=== PATIENT | female | born 1985 | race Caucasian/White ===

== ENCOUNTER 2016-09-07 14:46 | Emergency (ER) | payer OTHER ==
[~2016-09-07] VITALS: Ht 152.4 cm; Wt 67.7 kg
[~2016-09-07 14:46] MED LIST: CHOL1000 PO; HYDR-5688 PO; NRN100 PO; ONDA4TAB9 PO; PRLSR20 PO
[2016-09-07 14:51] VITALS: TEMP 36.9; Ht 152.4 cm; Wt 67.7 kg
[2016-09-07] MEDS ORDERED: SODIUM CHLORIDE 0.9% 1000ML 1,000 ML IV STA (15:48)
[2016-09-07] MEDS ORDERED: DiphenhydrAMINE HCL 50 MG/ML VIAL IV STA ×2 (15:48→16:48)
[2016-09-07] MEDS ORDERED: PROCHLORPERAZINE 5 MG/ML 2 ML VIAL IV STA (15:48)
[2016-09-07 16:22] LABS: BASO % 0.4 %; BASO ABS # 0.04 K/uL (0-0.2); COMPLETE YES; EOS % 2.3 %; HEMATOCRIT 38.9 % (37-47); IG% 0.2 %; LYMPH % 28.5 %; LYMPH ABS # 3.08 K/uL (1.2-3.4); MEAN CORPUSCULAR HEMOGLOBIN 27.6 pg (25-34); MEAN CORPUSCULAR HGB CONC 32.9 g/dl (32-36); MEAN PLATELET VOLUME 10.4 fL (7.4-10.4); MONO % 5.7 %; NEUT % 62.9 %; PLATELET COUNT 307 K/uL (130-400); RED BLOOD COUNT 4.63 M/uL (4.2-5.4); WHITE BLOOD COUNT 10.79 K/uL (4.8-10.8)
[2016-09-07 16:28] LABS: URINE APPEARANCE CLOUDY (CLEAR); URINE BILIRUBIN NEG (NEG); URINE COLOR YELLOW; URINE EPITHELIAL CELL AUTO >30 /lpf (0-5); URINE NITRITE POS (NEG); URINE PH 7.5 (4.5-7.5); URINE SPECIFIC GRAVITY 1.024 (1.000-1.030); UROBILINOGEN NEG (NEG)
[2016-09-07 16:31] LABS: MANUAL MICROSCOPIC REQUIRED? NO; REVIEW REQ? NO
[2016-09-07 16:45] LABS: CALCIUM 8.8 mg/dl (8.5-10.1); POTASSIUM 3.6 mmol/L (3.5-5.1)
[2016-09-07 17:49] VITALS: BP 122/64; PULSE 111; O2SAT 99
[2016-09-07] MEDS ORDERED: SUMA25TA12 PO (23:00)
--- NOTE | 2016-09-07 23:00 | EMERGENCY ROOM VISIT NOTE ---
History Report prepared by Magdalena: Kerry Lucero Under the Supervision of: Dr. Demarco Stone M.D. First contact with patient: 15:37 Chief Complaint: HEADACHE Stated Complaint: HEADACHE, NECK STIFFNESS, NAUSEA History of Present Illness The patient is a 31 year old female who presents to the Emergency Room with complaints of a waxing and waning headache beginning 5 days ago. The patient states that she has a history of migraines since she was a teenager. Today she reports that her headache today is "a little different" than her previous migraines. She notes that her pain is mostly on the left side behind her eye and down her neck. The patient states that her usual migraines are behind both eyes and are a constant pain. Her pain today is dull with waves of sharpness. She notes that light, coughing, vomiting, and sneezing worsens her pain. She reports that she is on Imitrex for her migraines and has tried ibuprofen, Tylenol, naproxen, and Excedrin without relief of her symptoms. The patient notes associated vomiting, neck pain, and diarrhea. She denies any fever, head injury, and sore throat. She states that she has a history of neck issues that she has gone to physical therapy for. She has also been seen by orthopedic spine because her neck pain. The patient notes that she had a kidney infection last month and was on antibiotics. She reports that she was supposed to see her urologist today. She denies any chance of . Source of History: patient Onset: 5 days ago Position: head (left ) Quality: dull Timing: waxes/wanes Modifying Factors (Worsening): other (coughing, vomiting, sneezing, light) Associated Symptoms: + diarrhea, + neck pain, + vomiting, No fevers, No sorethroat Note: She denies any head injury. Review of Systems See HPI for pertinent positives & negatives. A total of 10 systems reviewed and were otherwise negative. Past Medical & Surgical Medical Problems: (1) Acute urinary tract infection (2) Cholecystectomy (3) History of - tubal ligation (4) Infectious disorder of kidney (5) Ovarian cyst (6) Tonsillectomy and adenoidectomy Family History Cancer Diabetes mellitus Gallbladder disease Heart disease Hypertension Kidney disease Social History Smoking Status: Never Smoker Alcohol Use: occasionally Drug Use: none Marital Status: Housing Status: lives with family Occupation Status: employed Current/Historical Medications Scheduled Cholecalciferol (Vitamin D3), 1 TAB PO DAILY Ondansetron (Ondansetron HCl), 4 MG PO UD Scheduled PRN Omeprazole (Prilosec), 20 MG PO DAILY PRN for Indigestion Sumatriptan Succinate (Imitrex), 1 TAB PO UD PRN for Migraine Allergies Coded Allergies: Penicillins (Verified Allergy, Unknown, UNK, 06/18/16) Physical Exam Vital Signs Date Time Temp Pulse Resp B/P Pulse Ox O2 Delivery O2 Flow Rate FiO2 09/07/16 17:49 111 18 122/64 99 09/07/16 14:51 36.9 83 18 117/75 100 Physical Exam Constitutional: Vital signs reviewed. Eyes: Pupils are equal round reactive to light. Conjunctiva are noninjected. ENT: Pharynx is clear without erythema or exudate. Mucous membranes are moist. Neck supple without meningeal signs. Respiratory: Clear to auscultation bilaterally. Breath sounds are equal bilaterally. Cardiovascular: Regular rate and rhythm. No rubs or gallops. GI: Soft, nondistended and nontender. Bowel sounds are present. Musculoskeletal: No peripheral edema. No CVA tenderness. Integumentary: No cyanosis. Neurologic: The patient is awake and alert. Cranial nerves II-XII are intact. Motor is 5 out of 5 all extremities. Sensation is intact to light touch all extremities. Normal speech. No pronator drift. Negative Kernig or Brudzinski sign. Psychiatric: Normal affect. Medical Decision & Procedures Laboratory Results 09/07/16 16:00 Red Blood Count 4.63, Mean Corpuscular Volume 84.0, Mean Corpuscular Hemoglobin 27.6, Mean Corpuscular Hemoglobin Concent 32.9, Mean Platelet Volume 10.4, Neutrophils (%) (Auto) 62.9, Lymphocytes (%) (Auto) 28.5, Monocytes (%) (Auto) 5.7, Eosinophils (%) (Auto) 2.3, Basophils (%) (Auto) 0.4, Neutrophils # (Auto) 6.78, Lymphocytes # (Auto) 3.08, Monocytes # (Auto) 0.62, Eosinophils # (Auto) 0.25, Basophils # (Auto) 0.04 09/07/16 16:00 Test 09/07/16 15:59 09/07/16 16:00 Urine Color YELLOW Urine Appearance CLOUDY (CLEAR) Urine pH 7.5 (4.5-7.5) Urine Specific [place] 1.024 (1.000-1.030) Urine Protein NEG (NEG) Urine Glucose (UA) NEG (NEG) Urine Ketones TRACE (NEG) Urine Occult Blood NEG (NEG) Urine Nitrite POS (NEG) Urine Bilirubin NEG (NEG) Urine Urobilinogen NEG (NEG) Urine Leukocyte Esterase NEG (NEG) Urine WBC (Auto) 1-5 /hpf (0-5) Urine RBC (Auto) 0-4 /hpf (0-4) Urine Hyaline Casts (Auto) 1-5 /lpf (0-5) Urine Epithelial Cells (Auto) >30 /lpf (0-5) Urine Bacteria (Auto) 4+ (NEG) Urine Test NEG (NEG) White Blood Count 10.79 K/uL (4.8-10.8) Red Blood Count 4.63 M/uL (4.2-5.4) Hemoglobin 12.8 g/dL (12.0-16.0) Hematocrit 38.9 % (37-47) Mean Corpuscular Volume 84.0 fL (80-100) Mean Corpuscular Hemoglobin 27.6 pg (25-34) Mean Corpuscular Hemoglobin Concent 32.9 g/dl (32-36) Platelet Count 307 K/uL (130-400) Mean Platelet Volume 10.4 fL (7.4-10.4) Neutrophils (%) (Auto) 62.9 % Lymphocytes (%) (Auto) 28.5 % Monocytes (%) (Auto) 5.7 % Eosinophils (%) (Auto) 2.3 % Basophils (%) (Auto) 0.4 % Neutrophils # (Auto) 6.78 K/uL (1.4-6.5) Lymphocytes # (Auto) 3.08 K/uL (1.2-3.4) Monocytes # (Auto) 0.62 K/uL (0.11-0.59) Eosinophils # (Auto) 0.25 K/uL (0-0.5) Basophils # (Auto) 0.04 K/uL (0-0.2) RDW Standard Deviation 43.6 fL (36.4-46.3) RDW Coefficient of Variation 14.2 % (11.5-14.5) Immature Granulocyte % (Auto) 0.2 % Immature Granulocyte # (Auto) 0.02 K/uL (0.00-0.02) Anion Gap 10.0 mmol/L (3-11) Est Creatinine Clear Calc Drug Dose 70.6 ml/min Estimated GFR () 87.6 Estimated GFR (Non- 75.5 BUN/Creatinine Ratio 12.0 (10-20) Calcium Level 8.8 mg/dl (8.5-10.1) Laboratory results as reviewed by me. Medications Administered Medications (Trade) Dose Ordered Sig/Nikia Route Start Time Stop Time Status Last Admin Dose Admin Sodium Chloride (Nss 1000ml) 1,000 ml @ 999 mls/hr Q1H1M STAT IV 09/07/16 15:48 09/07/16 16:48 DC 09/07/16 16:08 999 MLS/HR Prochlorperazine Edisylate (Compazine Inj) 10 mg NOW STAT IV 09/07/16 15:48 09/07/16 15:49 DC 09/07/16 16:07 10 MG Diphenhydramine HCl (Benadryl Inj) 50 mg NOW STAT IV 09/07/16 15:48 09/07/16 15:49 DC 09/07/16 16:07 50 MG Diphenhydramine HCl (Benadryl Inj) 25 mg NOW STAT IV 09/07/16 16:48 09/07/16 16:49 DC 09/07/16 16:48 12.5 MG ED Course 1539: The patient was evaluated in room A3. A complete history and physical exam was performed. 1548: Benadryl Inj 50mg IV, Compazine Inj 10mg IV, Sodium Chloride 1000 ml @ 999 mls/hr IV. 1646: I reevaluated the patient. Her headache is much better now but she notes that her legs feel really restless. I also discussed the patients urine results with her. She is not having any urinary symptoms right now and would rather wait for the culture results and follow up with her urologist. 1648: Benadryl 25mg IV. 1716: I spoke to the patient. She is feeling better and would like to go home. 1725: Upon reevaluation, the patient appeared to have improvement of her symptoms. I discussed aleida's findings with the patient. She verbalized agreement of the treatment plan. The patient was discharged home. Medical Decision This is a 31-year-old female who presents with a headache and neck pain. Differential diagnosis includes migraine headache, tension headache, cluster headache, degenerative disc disease, meningitis. I did perform a limited focused review of portions of the patient's old chart on the electronic medical record. The patient got a head CT in September of last year which was unremarkable. I did evaluate the patient as noted above. She is presenting with a headache for the past 5 days. She also has neck pain but has a history of neck problems. She denies any fever and has no meningeal signs on examination. IV access was established. I did treat the patient with IV Compazine, Benadryl and normal saline. I did order and personally review the patient's urinalysis as described above. A urine culture was sent. I did order and review the patient's blood work as noted in the electronic medical record. Her white blood cell count is not elevated. I did reevaluate the patient. She states that she is feeling much better and remarked on how surprised she was much better she felt. She did, however, have significant restlessness in her legs likely due to the Compazine. I did therefore treat her with an additional 5 mg of Benadryl IV. I did discuss the test results with her. She stated that she would prefer to hold off on treatment with antibiotics as she is not having any urinary symptoms and will follow up closely with her urologist. She states that she was on Macrobid recently which she finished. The patient was discharged in good condition. She was given return instructions as outlined below. Impression Primary Impression: Headache Additional Impression: Vomiting and diarrhea Scribe Attestation The scribe's documentation has been prepared under my direct and personally reviewed by me in its entirety. I confirm that the note above accurately reflects all work, treatment, procedures, and medical decision making performed by me. Departure Information Dispostion Home / Self-Care Referrals Magui Martinez C.R.N.P (PCP) Forms HOME CARE DOCUMENTATION FORM, IMPORTANT VISIT INFORMATION Patient Instructions A Signature Page, ED Headache Migraine, My [facility] Additional Instructions You have been examined and treated today on an emergency basis only. This is not a substitute for, or an effort to provide, complete comprehensive medical care. It is impossible to recognize and treat all injuries or illnesses in a single emergency department visit. It is therefore important that you follow up closely with your physician and urologist . Call as soon as possible for an appointment. Return for worsening symptoms or if you develop fever, burning on urination, abdominal pain or any other concerning symptoms.
--- NOTE | 2016-09-09 18:03 | Pharmacy Progress Note ---
ED Pharmacist Culture FollowUp Date of Service: Sep 09, 2016. Called patient regarding urine culture. Patient unable to get an appointment with urologist until 2-3 weeks from now. Patient noted reason she was seeing a urologist was that she has had multiple episodes of "kidney infection" but is asymptomatic in terms of urinary symptoms until she has severe flank pain associated with pyelonephritis. Patient denies current urinary symptoms and severe flank pain. Based on history above, prescription for Bactrim DS 1 tab po BID x 5 days called to [facility] at the patient's request. Case discussed with Dr. Rangel, who is the prescribing provider.
[2017-07-21] MEDS ORDERED: ACET-1256 PO (09:36)
[2017-07-21] MEDS ORDERED: ETONMIS VAGRING (09:36)
[2017-07-21] MEDS ORDERED: CALC500C3 PO (09:36)
[2017-07-21] MEDS ORDERED: MULT-506 PO (09:36)
== END 2016-09-07 17:49 | disposition home or self-care (01) ==
LOC: C.EDB 14:48 → C.EDA 17:49
DX: R51 Headache (principal); R11.10 Vomiting, unspecified; R19.7 Diarrhea, unspecified; Z80.9 Family history of malignant neoplasm, unspecified; Z83.3 Family history of diabetes mellitus; Z82.49 Family history of ischemic heart disease and other diseases of the circulatory system; Z84.1 Family history of disorders of kidney and ureter

== ENCOUNTER → 2016-12-28 | Outpatient (CLI) | payer OTHER ==
[~2016-12-28] MED LIST changes: +ACET-1256 PO; +CALC500C3 PO; +ETONMIS VAGRING; -HYDR-5688 PO; +MULT-506 PO; -NRN100 PO; +SUMA25TA12 PO
== END | disposition home or self-care (01) ==
LOC: C.LABPVFM 08:14
PROVIDERS: ATTEND Physician Assistant
DX: N64.89 Other specified disorders of breast (principal)

== ENCOUNTER → 2017-01-13 | Outpatient (CLI) | payer OTHER ==
[2017-01-13 15:56] LABS: URINE APPEARANCE CLOUDY (CLEAR); URINE BILIRUBIN NEG (NEG); URINE COLOR YELLOW; URINE EPITHELIAL CELL AUTO >30 /lpf (0-5); URINE NITRITE NEG (NEG); URINE PH 7.5 (4.5-7.5); URINE SPECIFIC GRAVITY 1.025 (1.000-1.030); UROBILINOGEN NEG (NEG)
[2017-01-13 15:58] LABS: MANUAL MICROSCOPIC REQUIRED? NO; REVIEW REQ? NO
[2017-01-16 11:23] LABS: CHLAMYDIA TRACH RNA*** NOT DETECTED (NOT DETECTED); GC (NEIS GONORRHOEAE)RNA** NOT DETECTED (NOT DETECTED)
== END | disposition home or self-care (01) ==
LOC: C.LABSPEC 15:36
PROVIDERS: ATTEND Obstetrics & Gynecology
DX: R35.0 Frequency of micturition (principal); Z20.2 Contact with and (suspected) exposure to infections with a predominantly sexual mode of transmission

== ENCOUNTER → 2017-07-14 | Outpatient (CLI) | payer OTHER ==
[~2017-07-14] MED LIST changes: -ACET-1256 PO; -CALC500C3 PO; -ETONMIS VAGRING; -MULT-506 PO
[2017-07-19 00:46] LABS: CHLAMYDIA TRACH RNA*** NOT DETECTED (NOT DETECTED); GC (NEIS GONORRHOEAE)RNA** NOT DETECTED (NOT DETECTED); TRICHOMONAS VAGINALIS RNA** NOT DETECTED (NOT DETECTED)
== END | disposition home or self-care (01) ==
LOC: C.LABSPEC 13:40
PROVIDERS: ATTEND Physician Assistant
DX: N94.10 Unspecified dyspareunia (principal)

== ENCOUNTER 2017-11-16 11:11 | Emergency (ER) | payer OTHER ==
[~2017-11-16] VITALS: Ht 152.4 cm; Wt 75.0 kg
[~2017-11-16 11:11] MED LIST changes: +ACET-1256 PO; +CALC500C3 PO; -CHOL1000 PO; +ETONMIS VAGRING; +MULT-506 PO; -ONDA4TAB9 PO; -PRLSR20 PO
[2017-11-16 11:13] VITALS: Ht 152.4 cm; Wt 75.0 kg
[2017-11-16] MEDS ORDERED: ONDANSETRON INJ 2 MG/ML 2 ML VIAL IV STA (11:48)
[2017-11-16] MEDS ORDERED: LORAZEPAM 1 MG TAB SL STA (11:48)
[2017-11-16] MEDS ORDERED: SODIUM CHLORIDE 0.9% 1000ML 1,000 ML IV STA (11:48)
[2017-11-16 12:12] LABS: BASO % 0.4 %; BASO ABS # 0.03 K/uL (0-0.2); EOS % 2.8 %; EOS ABS # 0.21 K/uL (0-0.5); HEMATOCRIT 39.8 % (37-47); HEMOGLOBIN 13.2 g/dL (12.0-16.0); IG# 0.01 K/uL (0.00-0.02); LYMPH % 38.5 %; LYMPH ABS # 2.85 K/uL (1.2-3.4); MEAN CORPUSCULAR HEMOGLOBIN 27.8 pg (25-34); MEAN CORPUSCULAR HGB CONC 33.2 g/dl (32-36); MEAN PLATELET VOLUME 10.4 fL (7.4-10.4); MONO % 7.2 %; MONO ABS # 0.53 K/uL (0.11-0.59); NEUT ABS # 3.78 K/uL (1.4-6.5); PLATELET COUNT 304 K/uL (130-400); RED CELL DISTRIBUTION WIDTH SD 43.6 fL (36.4-46.3); WHITE BLOOD COUNT 7.41 K/uL (4.8-10.8)
[2017-11-16 12:30] LABS: ALBUMIN 4.3 gm/dl (3.4-5.0); ALT/SGPT 22 U/L (12-78); BLOOD UREA NITROGEN 9 mg/dl (7-18); CALCIUM 9.4 mg/dl (8.5-10.1); CARBON DIOXIDE 26 mmol/L (21-32); CREATININE 0.83 mg/dl (0.60-1.20); GLUCOSE 83 mg/dl (70-99); LIPASE 152 U/L (73-393); POTASSIUM 3.8 mmol/L (3.5-5.1); SODIUM 136 mmol/L (136-145)
[2017-11-16 12:35] LABS: ALKALINE PHOSPHATASE 94 U/L (45-117); AST/SGOT 19 U/L (15-37); TOTAL PROTEIN 8.4 gm/dl (6.4-8.2)
[2017-11-16 13:01] LABS: INFLUENZA B ANTIGEN Neg for Influ B (NEG)
--- NOTE | 2017-11-16 13:40 | DIAGNOSTIC IMAGING REPORT ---
CHEST ONE VIEW PORTABLE CLINICAL HISTORY: CHEST PAIN dyspnea COMPARISON STUDY: 04/27/2016 FINDINGS: The bones soft tissues and hemidiaphragms are normal. The cardiomediastinal silhouette is normal. The lungs are clear. The pulmonary vasculature is normal. IMPRESSION: Negative chest. The above report was generated using voice recognition software. It may contain grammatical, syntax or spelling errors. Electronically signed by: Dangelo Box M.D. 11/16/2017 1:38 PM Dictated Date/Time: 11/16/2017 1:37 PM
--- NOTE | 2017-11-16 13:43 | EMERGENCY ROOM VISIT NOTE ---
History Report prepared by Magdalnea: Tiesha Stoddard Under the Supervision of: Dr. Ihs Wong M.D. First contact with patient: 11:45 Chief Complaint: CHEST PAIN Stated Complaint: CHEST PAIN, HAND AND ARM NUBNESS, LIGHTHTEADED Nursing Triage Summary: pt to the ED with c/o chest pain and SOB that started this am no cough no cold sx pt states that the pain goes to her throat History of Present Illness The patient is a 32 year old female who presents to the Emergency Room with complaints of persistent chest pain starting this morning. The pain started soon after she woke up. The pain was initially sharp, but now just feels tight. The patient also started having hand and arm numbness and tingling this morning. These symptoms scared her and she developed a headache from crying. She does get nauseous and cries with her anxiety. She is currently just complaining of chest tightness, chills, and nausea. She has a history of anxiety and depression. She has not had panic attacks before. She only had chest pain once before with her anxiety and that was after her grandfather had . She is currently not on any medications for anxiety. 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 She notes that she was mostly likely thinking about this when she woke up this morning. She denies any cough, SOB, fever, congestion, vomiting, diarrhea, or abdominal pain. She recently was treated for a UTI. She currently does not have any urinary symptoms, but notes that she is usually not symptomatic with her UTIs. She denies any history of hypertension or diabetes. Her uncle had an MS in his 30s. He was a smoker. She has had a tubal ligation and denies any chance of . She denies any recent surgery or being bedbound. She does not smoke. She denies any history of blood clots or cancer. Source of History: patient Onset: this morning Position: chest Quality: other (tightness) Timing: other (persistent) Associated Symptoms: + chills, + headache, + nausea, No fevers, No cough, No SOB, No vomiting, No abdominal pain, No diarrhea, No urinary symptoms Review of Systems See HPI for pertinent positives and negatives. A total of ten systems were reviewed and were otherwise negative. Past Medical & Surgical Medical Problems: (1) Acute urinary tract infection (2) Cholecystectomy (3) History of - tubal ligation (4) Infectious disorder of kidney (5) Ovarian cyst (6) Tonsillectomy and adenoidectomy Family History Cancer Diabetes mellitus Gallbladder disease Heart disease Hypertension Kidney disease Social History Smoking Status: Never Smoker Alcohol Use: occasionally Drug Use: none Marital Status: Housing Status: lives with family Occupation Status: unemployed Current/Historical Medications Scheduled Acetaminophen (Tylenol), 1,000 MG PO BID Calcium Carbonate (Tums), PO PRN Etonogestrel/Ethinyl Estradiol (Nuvaring), 1 EA VAGRING MONTHLY Multivitamin (Multivitamin), 1 TAB PO DAILY Scheduled PRN Sumatriptan Succinate (Imitrex), 1 TAB PO UD PRN for Migraine Allergies Coded Allergies: Penicillins (Verified Allergy, Unknown, UNK, 11/16/17) Physical Exam Vital Signs Date Time Temp Pulse Resp B/P (MAP) Pulse Ox O2 Delivery O2 Flow Rate FiO2 11/16/17 14:30 59 119/54 98 11/16/17 13:32 109/77 11/16/17 13:30 76 20 99 11/16/17 13:01 109/84 11/16/17 13:00 60 15 100 11/16/17 12:32 86/37 11/16/17 12:30 61 16 99 11/16/17 12:18 72 18 117/68 100 Room Air 11/16/17 11:25 95 11/16/17 11:24 Room Air Physical Exam GENERAL: Awake, alert, anxious-appearing, in no distress HENT: Normocephalic, atraumatic. Dry mucous membranes. EYES: Normal conjunctiva. Sclera non-icteric. NECK: Supple. No nuchal rigidity. FROM. No JVD. RESPIRATORY: Clear to auscultation. CARDIAC: Regular rate, normal rhythm. Extremities warm and well perfused. Pulses equal. ABDOMEN: Soft, non-distended. No tenderness to palpation. No rebound or guarding. No masses. RECTAL: Deferred. MUSCULOSKELETAL: Chest examination reveals no tenderness. The back is symmetrical on inspection without obvious abnormality. There is no CVA tenderness to palpation. No joint edema. LOWER EXTREMITIES: Calves are equal size bilaterally and non-tender. No edema. No discoloration. NEURO: Normal sensorium. No sensory or motor deficits noted. SKIN: No rash or jaundice noted. Medical Decision & Procedures ER Provider Diagnostic Interpretation: Radiology results as stated below per my review and radiologist interpretation: CHEST ONE VIEW PORTABLE CLINICAL HISTORY: CHEST PAIN dyspnea COMPARISON STUDY: 04/27/2016 FINDINGS: The bones soft tissues and hemidiaphragms are normal. The cardiomediastinal silhouette is normal. The lungs are clear. The pulmonary vasculature is normal. IMPRESSION: Negative chest. The above report was generated using voice recognition software. It may contain grammatical, syntax or spelling errors. Electronically signed by: Dangelo Box M.D. 11/16/2017 1:38 PM Dictated Date/Time: 11/16/2017 1:37 PM Laboratory Results 11/16/17 11:50 Red Blood Count 4.74, Mean Corpuscular Volume 84.0, Mean Corpuscular Hemoglobin 27.8, Mean Corpuscular Hemoglobin Concent 33.2, Mean Platelet Volume 10.4, Neutrophils (%) (Auto) 51.0, Lymphocytes (%) (Auto) 38.5, Monocytes (%) (Auto) 7.2, Eosinophils (%) (Auto) 2.8, Basophils (%) (Auto) 0.4, Neutrophils # (Auto) 3.78, Lymphocytes # (Auto) 2.85, Monocytes # (Auto) 0.53, Eosinophils # (Auto) 0.21, Basophils # (Auto) 0.03 11/16/17 11:50 Test 11/16/17 11:50 11/16/17 12:00 White Blood Count 7.41 K/uL (4.8-10.8) Red Blood Count 4.74 M/uL (4.2-5.4) Hemoglobin 13.2 g/dL (12.0-16.0) Hematocrit 39.8 % (37-47) Mean Corpuscular Volume 84.0 fL (80-100) Mean Corpuscular Hemoglobin 27.8 pg (25-34) Mean Corpuscular Hemoglobin Concent 33.2 g/dl (32-36) Platelet Count 304 K/uL (130-400) Mean Platelet Volume 10.4 fL (7.4-10.4) Neutrophils (%) (Auto) 51.0 % Lymphocytes (%) (Auto) 38.5 % Monocytes (%) (Auto) 7.2 % Eosinophils (%) (Auto) 2.8 % Basophils (%) (Auto) 0.4 % Neutrophils # (Auto) 3.78 K/uL (1.4-6.5) Lymphocytes # (Auto) 2.85 K/uL (1.2-3.4) Monocytes # (Auto) 0.53 K/uL (0.11-0.59) Eosinophils # (Auto) 0.21 K/uL (0-0.5) Basophils # (Auto) 0.03 K/uL (0-0.2) RDW Standard Deviation 43.6 fL (36.4-46.3) RDW Coefficient of Variation 14.0 % (11.5-14.5) Immature Granulocyte % (Auto) 0.1 % Immature Granulocyte # (Auto) 0.01 K/uL (0.00-0.02) Anion Gap 7.0 mmol/L (3-11) Est Creatinine Clear Calc Drug Dose 88.8 ml/min Estimated GFR () 108.9 Estimated GFR (Non- 94.0 BUN/Creatinine Ratio 10.9 (10-20) Calcium Level 9.4 mg/dl (8.5-10.1) Total Bilirubin 0.4 mg/dl (0.2-1) Direct Bilirubin 0.1 mg/dl (0-0.2) Aspartate Amino Transf (AST/SGOT) 19 U/L (15-37) Alanine Aminotransferase (ALT/SGPT) 22 U/L (12-78) Alkaline Phosphatase 94 U/L (45-117) Troponin I < 0.015 ng/ml (0-0.045) Total Protein 8.4 gm/dl (6.4-8.2) Albumin 4.3 gm/dl (3.4-5.0) Lipase 152 U/L (73-393) Urine Color YELLOW Urine Appearance CLEAR (CLEAR) Urine pH >= 9.0 (4.5-7.5) Urine Specific [place] 1.018 (1.000-1.030) Urine Protein NEG (NEG) Urine Glucose (UA) NEG (NEG) Urine Ketones NEG (NEG) Urine Occult Blood NEG (NEG) Urine Nitrite POS (NEG) Urine Bilirubin NEG (NEG) Urine Urobilinogen NEG (NEG) Urine Leukocyte Esterase NEG (NEG) Urine WBC (Auto) 1-5 /hpf (0-5) Urine RBC (Auto) 0-4 /hpf (0-4) Urine Hyaline Casts (Auto) 0 /lpf (0-5) Urine Epithelial Cells (Auto) >30 /lpf (0-5) Urine Bacteria (Auto) 4+ (NEG) Urine Test NEG (NEG) Influenza Type A Antigen Neg for Influ A (NEG) Influenza Type B Antigen Neg for Influ B (NEG) Laboratory results reviewed by me Medications Administered Medications (Trade) Dose Ordered Sig/Nikia Route Start Time Stop Time Status Last Admin Dose Admin Sodium Chloride 1,000 ml @ 999 mls/hr Q1H1M STAT IV 11/16/17 11:48 11/16/17 12:48 DC 11/16/17 12:20 999 MLS/HR Ondansetron HCl (Zofran Inj) 4 mg NOW STAT IV 11/16/17 11:48 11/16/17 11:56 DC 11/16/17 12:20 4 MG Lorazepam (Ativan Tab) 1 mg NOW STAT SL 11/16/17 11:48 11/16/17 11:56 DC 11/16/17 12:19 1 MG ECG Per My Interpretation Indication: chest pain Rate (beats per minute): 76 Rhythm: normal sinus Findings: no acute ischemic change, other (normal axis) ED Course 1148: The patient was evaluated in room A11B. A complete history and physical exam was performed. 1348: I reevaluated the patient. Discussed results and discharge instructions: She verbalized understanding and agreement. The patient is ready for discharge. Medical Decision I reviewed the patient's past medical history, medications, and the nursing notes as described above. Differential diagnosis: Etiologies such as anxiety, cardiac ischemia, aortic dissection, pulmonary embolism, pneumonia, pneumothorax, musculoskeletal, infections, pericarditis, myocarditis, esophageal rupture, gastrointestinal, as well as others were entertained. The patient is a 32-year-old woman with a past medical history of anxiety depression who presents emergency department with substernal chest pain that happened when she woke this morning in the setting of feeling stress related to legal/school issues related to her daughter per hpi. Rather the patient is anxious appearing but no acute distress, afebrile stable vital signs. EKG is negative for acute ischemia. Troponin negative the setting of greater than 4 hours of symptoms. Heart score 1, low risk, ACS unlikely. Patient is not tachycardic or hypoxic and thus is PERC negative. PE not likely. Chest x-ray negative. Otherwise labs unremarkable including WBC within normal limits. UA with positive nitrites however no WBCs and otherwise a dirty sample with epithelial cells. Given the patient has no dysuria will wait for cultures. Patient feeling improved after IV fluid hydration and Ativan. Thus, symptoms most likely related to patient's anxiety related to her current stressful situation. Findings and plan for follow-up reviewed with patient. Patient agreeable and d/c'd per discharge instructions. Medication Reconcilliation Current Medication List: was personally reviewed by me Blood Pressure Screening Patient's blood pressure: Normal blood pressure Blood pressure disposition: Did not require urgent referral Impression Primary Impression: Substernal precordial chest pain Additional Impression: Anxiety Scribe Attestation The scribe's documentation has been prepared under my direction and personally reviewed by me in its entirety. I confirm that the note above accurately reflects all work, treatment, procedures, and medical decision making performed by me. Departure Information Dispostion Home / Self-Care Referrals Magui Martinez C.R.N.P (PCP) Patient Instructions Anxiety Body Response, ED Chest Pain Atypical Unkn Cause, My [facility] Additional Instructions Please follow up with your primary care physician in the next 1-3 days for re- evaluation. Your symptoms were most likely related to anxiety. Otherwise, your exam, EKG, chest xray, and lab results did not show signs of an emergent condition at this time. Drink plenty of fluids to ensure hydration. Return to the emergency department for worsening symptoms as described in the accompanying instructions. Problem Qualifiers
[2017-11-16 14:30] VITALS: BP 119/54; PULSE 59; O2SAT 98
== END 2017-11-16 14:30 | disposition home or self-care (01) ==
LOC: C.EDB 11:13 → C.EDA 14:30
DX: R07.2 Precordial pain (principal); F41.9 Anxiety disorder, unspecified; Z83.3 Family history of diabetes mellitus; Z82.49 Family history of ischemic heart disease and other diseases of the circulatory system

== ENCOUNTER 2018-04-08 08:48 | Emergency (ER) | payer OTHER ==
[~2018-04-08] VITALS: Ht 152.4 cm; Wt 71.2 kg
[~2018-04-08 08:48] MED LIST changes: -ETONMIS VAGRING; +IBUP200C80 PO; -MULT-506 PO; -SUMA25TA12 PO; +lidocaine patch
[2018-04-08 08:54] VITALS: TEMP 36.8; Ht 152.4 cm; Wt 71.2 kg
[2018-04-08] MEDS ORDERED: SODIUM CHLORIDE 0.9% 1000ML 1,000 ML IV STA (09:03)
[2018-04-08] MEDS ORDERED: ONDANSETRON INJ 2 MG/ML 2 ML VIAL ONE (09:11)
[2018-04-08 09:20] LABS: BASO % 0.5 %; BASO ABS # 0.05 K/uL (0-0.2); HEMATOCRIT 39.5 % (37-47); HEMOGLOBIN 12.8 g/dL (12.0-16.0); IG# 0.02 K/uL (0.00-0.02); LYMPH % 34.8 %; LYMPH ABS # 3.35 K/uL (1.2-3.4); MEAN CELL VOLUME 82.3 fL (80-100); MEAN CORPUSCULAR HEMOGLOBIN 26.7 pg (25-34); MEAN CORPUSCULAR HGB CONC 32.4 g/dl (32-36); MEAN PLATELET VOLUME 10.2 fL (7.4-10.4); MONO % 7.7 %; MONO ABS # 0.74 K/uL (0.11-0.59); NEUT % 55.8 %; NEUT ABS # 5.38 K/uL (1.4-6.5); PLATELET COUNT 301 K/uL (130-400); RED CELL DISTRIBUTION WIDTH CV 14.4 % (11.5-14.5); RED CELL DISTRIBUTION WIDTH SD 43.5 fL (36.4-46.3); WHITE BLOOD COUNT 9.64 K/uL (4.8-10.8)
[2018-04-08] MEDS ORDERED: RANITIDINE HCL 50 MG/100 ML D5W IV STA (09:27)
[2018-04-08] MEDS ORDERED: KETOROLAC TROMETHAMINE 30 MG/ML VIAL IV STA (09:27)
[2018-04-08] MEDS ORDERED: DICYCLOMINE HCL 10 MG/ML 2 ML AMP IM ONE (09:30)
[2018-04-08 09:38] LABS: ALBUMIN 3.9 gm/dl (3.4-5.0); CALCIUM 9.1 mg/dl (8.5-10.1); CREATININE 0.91 mg/dl (0.60-1.20); POTASSIUM 3.6 mmol/L (3.5-5.1); TOTAL PROTEIN 8.2 gm/dl (6.4-8.2)
[2018-04-08] MEDS ORDERED: CEFTRIAXONE SOD INJ 1 GM ADDVIAL IV STA (10:15)
--- NOTE | 2018-04-08 11:36 | EMERGENCY ROOM VISIT NOTE ---
History Report prepared by Magdalena: Marija Del Rosario Under the Supervision of: Dr. Chaitanya Tirado M.D. First contact with patient: 09:03 Chief Complaint: ILLNESS Stated Complaint: NAUSEA, VOMITING, STOMACH CRAMPS, HEART BURN, [place] History of Present Illness The patient is a 32 year old female who presents to the Emergency Room with complaints of generalized pain over the last 2 days. She currently rates her pain at a 6/10. The patient reports having upper abdominal pain, nausea, vomiting, diarrhea, and headaches. The patient also reports being gassy and bloated and having heart burn. She states that she recently ate [employer] but reports that her stomach usually hurts afterwards when she does. The patient denies any recent antibiotic use. The patient reports taking Tylenol and Pepto Bismol for her pain. She denies being around anyone sick, trying new foods, or recent travel. The patient states that she tried to eat bryant and crackers but was unable to keep it down. She reports a history of a tubal ligation, cholecystectomy, tonsillectomy, and ovarian cyst removal. She also reports following with a urologist for UTIs. Pt denies melena, hematochezia, urinary symptoms, numbness, lymphadenopathy, rash, or other complaints. Source of History: patient Onset: over the last 2 days Position: other (generalized) Symptom Intensity: rated at a 6/10 Quality: other (pain) Associated Symptoms: + headache, + nausea, + vomiting, + abdominal pain, + diarrhea, No urinary symptoms Note: additional symptom: heart burn Review of Systems See HPI for pertinent positives and negatives. A total of ten systems were reviewed and were otherwise negative. Past Medical & Surgical Medical Problems: (1) Acute urinary tract infection (2) Ankle sprain (3) Back pain (4) Cholecystectomy (5) Electric shock (6) Electric shock (7) Foot pain (8) History of - tubal ligation (9) Infectious disorder of kidney (10) Left flank pain (11) Menses painful (12) Ovarian cyst (13) Pain, dental (14) Pain, dental (15) Partial thickness burn of left foot (16) Pyelonephritis (17) Tonsillectomy and adenoidectomy (18) Torticollis, acute (19) UTI (urinary tract infection) (20) Vomiting (21) Vomiting and diarrhea Social History Problems: (1) Headache Family History Cancer Diabetes mellitus Gallbladder disease Heart disease Hypertension Kidney disease Social History Smoking Status: Never Smoker Alcohol Use: occasionally Drug Use: none Marital Status: Housing Status: lives with family Occupation Status: unemployed Current/Historical Medications Scheduled Nitrofurantoin Monohyd Macrocr (Macrobid), 100 MG PO BID Ondasetron Odt (Zofran Odt), 4 MG SL Q6H Allergies Coded Allergies: Penicillins (Verified Allergy, Unknown, UNK, 04/08/18) Physical Exam Vital Signs Date Time Temp Pulse Resp B/P (MAP) Pulse Ox O2 Delivery O2 Flow Rate FiO2 04/08/18 12:41 67 16 116/72 98 Room Air 04/08/18 10:25 66 17 103/58 99 Room Air 04/08/18 08:54 36.8 87 18 127/85 98 Room Air Physical Exam GENERAL: Awake, alert, uncomfortable-appearing, in no distress HENT: Normocephalic, atraumatic. Oropharynx unremarkable. EYES: Normal conjunctiva. Sclera non-icteric. NECK: Supple. No nuchal rigidity. FROM. No masses. RESPIRATORY: Clear to auscultation. No wheezes. No rales. Normal respiratory effort. CARDIAC: Normal rate. Normal rhythm. No murmurs. No rubs. Extremities warm and well perfused. Pulses equal. No JVD. GI: Soft, non-distended. No tenderness to palpation. No rebound or guarding. No masses. RECTAL: Deferred. MUSCULOSKELETAL: Atraumatic. Chest examination reveals no tenderness. The back is without obvious abnormality. There is no CVA tenderness to palpation. No joint edema. LOWER EXTREMITIES: Calves are equal size bilaterally and non-tender. No edema. No discoloration. NEURO: Normal sensorium. No sensory or motor deficits noted. SKIN: No rash or jaundice noted. Medical Decision & Procedures Laboratory Results 04/08/18 09:08 Red Blood Count 4.80, Mean Corpuscular Volume 82.3, Mean Corpuscular Hemoglobin 26.7, Mean Corpuscular Hemoglobin Concent 32.4, Mean Platelet Volume 10.2, Neutrophils (%) (Auto) 55.8, Lymphocytes (%) (Auto) 34.8, Monocytes (%) (Auto) 7.7, Eosinophils (%) (Auto) 1.0, Basophils (%) (Auto) 0.5, Neutrophils # (Auto) 5.38, Lymphocytes # (Auto) 3.35, Monocytes # (Auto) 0.74, Eosinophils # (Auto) 0.10, Basophils # (Auto) 0.05 04/08/18 09:08 Test 04/08/18 09:00 04/08/18 09:08 Urine Color DK YELLOW Urine Appearance TURBID (CLEAR) Urine pH 6.0 (4.5-7.5) Urine Specific [place] 1.028 (1.000-1.030) Urine Protein TRACE (NEG) Urine Glucose (UA) NEG (NEG) Urine Ketones TRACE (NEG) Urine Occult Blood NEG (NEG) Urine Nitrite POS (NEG) Urine Bilirubin NEG (NEG) Urine Urobilinogen NEG (NEG) Urine Leukocyte Esterase NEG (NEG) Urine WBC (Auto) 1-5 /hpf (0-5) Urine RBC (Auto) 0-4 /hpf (0-4) Urine Hyaline Casts (Auto) /lpf (0-5) Urine Epithelial Cells (Auto) >30 /lpf (0-5) Urine Bacteria (Auto) 4+ (NEG) Urine Pathogenic Casts /lpf (0) Urine Test NEG (NEG) White Blood Count 9.64 K/uL (4.8-10.8) Red Blood Count 4.80 M/uL (4.2-5.4) Hemoglobin 12.8 g/dL (12.0-16.0) Hematocrit 39.5 % (37-47) Mean Corpuscular Volume 82.3 fL (80-100) Mean Corpuscular Hemoglobin 26.7 pg (25-34) Mean Corpuscular Hemoglobin Concent 32.4 g/dl (32-36) Platelet Count 301 K/uL (130-400) Mean Platelet Volume 10.2 fL (7.4-10.4) Neutrophils (%) (Auto) 55.8 % Lymphocytes (%) (Auto) 34.8 % Monocytes (%) (Auto) 7.7 % Eosinophils (%) (Auto) 1.0 % Basophils (%) (Auto) 0.5 % Neutrophils # (Auto) 5.38 K/uL (1.4-6.5) Lymphocytes # (Auto) 3.35 K/uL (1.2-3.4) Monocytes # (Auto) 0.74 K/uL (0.11-0.59) Eosinophils # (Auto) 0.10 K/uL (0-0.5) Basophils # (Auto) 0.05 K/uL (0-0.2) RDW Standard Deviation 43.5 fL (36.4-46.3) RDW Coefficient of Variation 14.4 % (11.5-14.5) Immature Granulocyte % (Auto) 0.2 % Immature Granulocyte # (Auto) 0.02 K/uL (0.00-0.02) Anion Gap 6.0 mmol/L (3-11) Est Creatinine Clear Calc Drug Dose 78.9 ml/min Estimated GFR () 97.4 Estimated GFR (Non- 84.1 BUN/Creatinine Ratio 13.0 (10-20) Calcium Level 9.1 mg/dl (8.5-10.1) Total Bilirubin 0.6 mg/dl (0.2-1) Direct Bilirubin 0.2 mg/dl (0-0.2) Aspartate Amino Transf (AST/SGOT) 18 U/L (15-37) Alanine Aminotransferase (ALT/SGPT) 19 U/L (12-78) Alkaline Phosphatase 81 U/L (45-117) Total Protein 8.2 gm/dl (6.4-8.2) Albumin 3.9 gm/dl (3.4-5.0) Lipase 120 U/L (73-393) Laboratory results reviewed by me Medications Administered Medications (Trade) Dose Ordered Sig/Nikia Route Start Time Stop Time Status Last Admin Dose Admin Sodium Chloride 1,000 ml @ 999 mls/hr Q1H1M STAT IV 04/08/18 09:03 04/08/18 10:03 DC 04/08/18 09:18 999 MLS/HR Ondansetron HCl (Zofran Inj) 4 mg STK-MED ONCE .ROUTE 04/08/18 09:11 04/08/18 09:12 DC 04/08/18 09:18 4 MG Ketorolac Tromethamine (Toradol Inj) 15 mg NOW STAT IV 04/08/18 09:27 04/08/18 09:29 DC 04/08/18 09:42 15 MG Dicyclomine HCl (Bentyl Inj) 20 mg NOW ONCE IM 04/08/18 09:30 04/08/18 09:31 DC 04/08/18 09:48 20 MG Ranitidine HCl (zANTac IV) 50 mg NOW STAT IV 04/08/18 09:27 04/08/18 09:29 DC 04/08/18 09:42 50 MG Ceftriaxone Sodium (Rocephin Inj) 1 gm NOW STAT IV 04/08/18 10:15 04/08/18 10:16 DC 04/08/18 10:23 1 GM ED Course 0903: Ordered Sodium Chloride 1000 ml @ 999 mls/hr IV. 0911: Ordered Zofran Inj 4 mg IV. 0926: The patient was evaluated in room B12B. A complete history and physical exam was performed. 926: Ordered Ranitidine HCl 50 mg IV, Toradol Inj 15 mg IV. 30: Ordered Bentyl Inj 20 mg IM. 1014: I reviewed the patient's records. She has had multiple cases of E.Coli and UTIs. 1015: Ordered Rocephin Inj 1 gm IV. 1235: I reevaluated the patient. She feels better and denies having any pain or nausea. Discussed results and discharge instructions: She verbalized understanding and agreement. The patient is ready for discharge. Medical Decision Prior records/ancillary studies reviewed. Triage Nursing notes reviewed and agree them. Additional history obtained from the family. The patient's history was concerning for nausea, vomiting, diarrhea, and abdominal pain. Differential diagnosis: Etiologies such as gastroenteritis, food borne illness, infections, appendicitis , diverticulitis, inflammatory bowel disease, GI bleed, biliary pathology, UTI, as well as others were entertained. Physical examination findings: As above. No peritoneal findings. ER treatment provided: IV hydration 1 l NSS. Zofran 4 mg IV Bentyl 20 mg IM Toradol 10 mg IV On reassessment the patient felt better. Patient was tolerating p.o. intake. IV Rocephin Diagnostics interpretation by me: The labs revealed an unremarkable CBC and chemistry panel. The patient has what appears to be UTI on urinalysis. Microbiology review indicates she has had frequent E. coli and Klebsiella UTIs have been sensitive to cephalosporins as well as Macrobid. Imaging studies: Deferred After the above treatment the patient was reassessed. She was feeling much better. Her abdominal pain resolved. She had no additional nausea or vomiting. I discussed conservative management with her. She will be prescribed Macrobid and Zofran. She will use [id number] Imodium. If she has worsening problems she will come back to emergency department for reevaluation. She will follow-up with her primary physician. The patient was educated. By the evaluation outlined above other emergent etiologies such as those listed in the differential, as well as others, were deemed relatively unlikely. The patient was educated about the findings as listed above. All questions were answered and the patient was pleased with the treatment. Return instructions were outlined and the patient was discharged in stable condition. The patient was referred to her PCP for follow-up for a recheck of the current condition. Medication Reconcilliation Current Medication List: was personally reviewed by me Blood Pressure Screening Patient's blood pressure: Normal blood pressure Impression Primary Impression: Nausea vomiting and diarrhea Additional Impression: UTI (urinary tract infection) Scribe Attestation The scribe's documentation has been prepared under my direction and personally reviewed by me in its entirety. I confirm that the note above accurately reflects all work, treatment, procedures, and medical decision making performed by me. Departure Information Dispostion Home / Self-Care Prescriptions Nitrofurantoin Monohyd Macrocr (Macrobid) 100 Mg Cap 100 MG PO BID, #14 CAP Prov: Chaitanya Tirado MD 04/08/18 Ondasetron Odt (ZOFRAN ODT) 4 Mg Tab 4 MG SL Q6H for Nausea, #6 TAB Prov: Chaitanya Tirado MD 04/08/18 Referrals Magui Martinez, C.R.N.P (PCP) Forms HOME CARE DOCUMENTATION FORM, IMPORTANT VISIT INFORMATION, WORK / SCHOOL INSTRUCTIONS Patient Instructions My [facility] Additional Instructions Macrobid 100 mg twice daily for 7 days for your urine infection. Imodium: This is available [id number]. Start out with two pills then take one after each loose bowel movement. You can take a maximum of 8 in one day. Only used as needed. Stop if you have bloody stools. Zofran(odansetron) tablets 4mg: Take one and allow it to dissolve in your mouth every four to six hours as needed for nausea or vomiting. Ibuprofen(Motrin, Advil) may be used for fever or pain. Use 600mg every six hours as needed. Take with food. Avoid using more than 2400mg in a 24 hour period. Do not use 2400mg per day for more than three consecutive days without physician direction. Prolonged inappropriate use can lead to stomach upset or ulcers. (AND/OR) Acetaminophen(Tylenol) may be used for fever or pain. Use 1000mg every six hours as needed. Avoid using more than 4000mg in a 24 hour period. Rest and drink plenty of fluids as tolerated. Slow sips of water or sports drinks are recommended instead of large amounts all at once. Continue current medications. Once your stomach is settled start with a clear liquid diet (jello, soup broth, etc.) and then advance as tolerated. You should avoid full, heavy meals for about 24 hrs from the time your symptoms resolved. Return to the ER for persistent vomiting, fevers, abdominal pain, chest pains, difficulty breathing, black or bloody stools, worsening of your condition, or as needed. Follow up with your primary physician in 2-3 days for a recheck of your current condition Problem Qualifiers
[2018-04-08] MEDS ORDERED: ONDA4TAB10 SL (12:35)
[2018-04-08] MEDS ORDERED: NITR-5 PO (12:35)
[2018-04-08 12:41] VITALS: BP 116/72; PULSE 67; O2SAT 98
== END 2018-04-08 12:55 | disposition home or self-care (01) ==
LOC: C.EDB 10:28
DX: N39.0 Urinary tract infection, site not specified (principal); Z90.49 Acquired absence of other specified parts of digestive tract; Z98.51 Tubal ligation status; Z87.440 Personal history of urinary (tract) infections; Z80.9 Family history of malignant neoplasm, unspecified; Z83.3 Family history of diabetes mellitus; Z83.79 Family history of other diseases of the digestive system; Z82.49 Family history of ischemic heart disease and other diseases of the circulatory system; Z84.1 Family history of disorders of kidney and ureter; Z88.0 Allergy status to penicillin

== ENCOUNTER 2019-10-13 17:15 | Observation (INO) ==
[2019-10-13 17:53] LABS: Basophils # (auto) 0.03 K/uL (0-0.2); Basophils % (auto) 0.2 %; Eosinophils # (auto) 0.01 K/uL (0-0.5); Eosinophils % (auto) 0.1 %; Hematocrit (blood only) 35.6 % (37-47); Immature Granulocytes # (auto) 0.03 K/uL (0.00-0.02); Immature Granulocytes % (auto) 0.2 %; Lymphocytes % (auto) 17.6 %; Mean Corpuscular Hemoglobin 27.8 pg (25-34); Mean Corpuscular Hgb Conc 33.7 g/dL (32-36); Mean Corpuscular Volume 82.6 fL (80-100); Mean Platelet Volume 9.9 fL (7.4-10.4); Monocytes # (auto) 0.59 K/uL (0.11-0.59); Monocytes % (auto) 4.2 %; Neutrophils # (auto) 11.04 K/uL (1.4-6.5); Neutrophils % (auto) 77.7 %; Platelet Count 290 K/uL (130-400); RDW Coefficient of Variation 13.8 % (11.5-14.5); Red Blood Count 4.31 M/uL (4.2-5.4)
[2019-10-13 17:58] LABS: Appearance Urine Cloudy (Clear); Bacteria Urine Automated 4+ (Negative); Bilirubin Urine Negative (Negative); Blood Urine 3+ (Negative); Color Urine Dark Yellow; Epithelial Cell Urine Auto >30 /lpf (0-5); Glucose Urine UA Negative (Negative); Ketones Urine Negative (Negative); Leukocyte Esterase Urine Negative (Negative); Nitrite Urine Positive (Negative); Protein Urine Trace (Negative); Specific Gravity Urine 1.035 (1.000-1.030); Urobilinogen Urine Negative (Negative); pH Urine 5.5 (4.5-7.5)
[2019-10-13] MEDS ORDERED: HYDROmorphone INJ 0.5 MG/0.5 ML SYR IV PRN (18:04)
[2019-10-13] MEDS ORDERED: ONDANSETRON INJ 2 MG/ML 2 ML VIAL IV STA ×2 (18:04→19:57)
[2019-10-13] MEDS ORDERED: KETOROLAC TROMETHAMINE 15 MG/ML VIAL IV ONE (18:04)
[2019-10-13] MEDS ORDERED: SODIUM CHLORIDE 0.9% 1000ML 1,000 ML IV ONE (18:04)
[2019-10-13 18:13] LABS: BUN Creatinine Ratio 15.1 (10-20); Calcium 8.6 mg/dl (8.5-10.1); Creatinine Clr Calc Pharmacy 81.8 ml/min; Potassium 3.3 mmol/L (3.5-5.1)
[2019-10-13 18:16] LABS: Albumin Globulin Ratio 1.1 (0.9-2); Bilirubin,Total 0.6 mg/dl (0.2-1); Globulin 3.8 gm/dl (2.5-4.0); Total Protein 7.8 gm/dl (6.4-8.2)
--- NOTE | 2019-10-13 18:42 | CT Scan Report ---
CT OF THE ABDOMEN AND PELVIS WITHOUT CONTRAST CLINICAL HISTORY: Left flank pain. COMPARISON STUDY: CT of the abdomen and pelvis February 27, 2018 TECHNIQUE: Axial images of the abdomen and pelvis were obtained without IV contrast. Images were revi ewed in the axial, sagittal, and coronal planes. Automated exposure control was utilized for the jeovany dy. A dose lowering technique was utilized adhering to the principles of ALARA. FINDINGS: Lung bases are unremarkable. No renal, ureteral or bladder calculi are present. There is no hydronephrosis or hydroureter. Evaluation of the abdomen and pelvis is suboptimal as unenhanced exam . Mild prominence of the common bile duct is unchanged since prior CT and likely related to cholecyst ectomy. The spleen, adrenal glands, liver and pancreas are unremarkable. There is no peripancreatic i nfiltration. There is no evidence for acute appendicitis. Trace fluid within the pelvis is likely phy siologic. The ovaries are not enlarged. No pneumatosis, free air or portal venous gas is present. [place] nazanin is in place. There are no suspicious osseous lesions. IMPRESSION: 1. No urinary calculi or hydronephrosis. 2. No acute process within the abdomen or pelvis on unenhanced exam. ACT 112: Negative or not required by law. Electronically signed by: Celso Prcie M.D. 10/13/2019 6:41 PM
[2019-10-13 18:55] LABS: Mucus Urine Present (None Prsent)
[2019-10-13 18:56] LABS: Amorphous Sediment Urine Present (None Prsent)
[2019-10-13] MEDS ORDERED: cefTRIAXone SODIUM 1,000 MG/50 ML BAG IV STA (18:59)
[2019-10-13] MEDS ORDERED: CALCIUM CARBONATE 500 MG CHEWABLE TAB PO STA (20:02)
[2019-10-13] MEDS: SEPTRA DS HOME PACK 1 EA VIAL PO ONE ×2 (20:48→21:33)
[2019-10-13] MEDS: PHENERGAN 25MG HOMEPACK PO ONE ×2 (20:48→21:33)
[2019-10-13] MEDS: OXYCODONE IR HOME PACK PO ONE ×2 (20:48→21:33)
--- NOTE | 2019-10-13 21:42 | History & Physical Report ---
Date of Service October 13, 2019 Assessment & Plan (1) Urinary tract infection: Urinary tract infection with neutrophilic leukocytosis/severe pelvic pain bilaterally- Severe lower abdominal and bilateral flank pain. Differential includes urinary tract infection/PID/endometriosis. She was given ceftriaxone 1 g IV in the ED. Admit on cefepime 2 g IV every 8 hours.- Presumptive diagnosis by the ED was pyelonephritis, however, CT of abdomen pelvis is completely normal. Her mother has a history of severe endometriosis, which she felt she has had in the past as well. Follow clinical examination, and repeat laboratories in the a.m.. Present on Admission?: Yes (2) Neutrophilic leukocytosis: See above Present on Admission?: Yes (3) GERD without esophagitis: Place on famotidine 20mg IV q12h Present on Admission?: Yes (4) Irritable bowel syndrome: She does complain of back and lower pelvic cramping- Place on baclofen 10 mg p.o. 3 times daily. Present on Admission?: Yes (5) Depression: On no specific treatment at this time Present on Admission?: Yes (6) Bipolar I disorder, single manic episode: On no specific treatment at this time. Present on Admission?: Yes History of Present Illness Chief Complaint: The patient presents to the emergency department with acute onset of bilateral groin, pelvis and flank pain while at work today. Primary Care Provider: Harriet Flood MD The patient is a 34-year-old female with a past medical history including bipolar disorder with single manic episode, anxiety, depression, GERD, irritable bowel syndrome, lumbar radiculopathy, mixed incontinence, vitamin D deficiency, compression fracture, umbilical hernia, history of tubal ligation, history of pyelonephritis and family history of mother with severe endometriosis. She presents to the emergency department with acute onset of pain which she thought may have been a kidney infection, however, she has not noticed any change in urinary frequency or urgency or hematuria. Urinalysis in the ED is positive for UTI on screening, but CT scan of the abdomen/ pelvis was negative. CT did also confirm a tampon being in place. Allergies Allergy/AdvReac Type Severity Reaction Status Date / Time Penicillins Allergy Mild Rash Verified 10/13/19 17:48 Home Medications Home Medications Medication Instructions Recorded Confirmed Type ibuprofen 400 mg PO QID PRN 11/16/18 10/13/19 History acetaminophen 500 mg tablet 1,000 mg PO Q6H PRN tab 04/08/19 10/13/19 History ergocalciferol (vitamin D2) 1,250 mcg PO WK 10/13/19 10/13/19 History [Vitamin D2] oxycodone 5 - 10 mg PO Q4H PRN #14 tab 10/13/19 Rx promethazine 25 mg PO Q6H PRN #10 tab 10/13/19 Rx sulfamethoxazole-trimethoprim 1 tab PO Q12H 7 Days #14 tab 10/13/19 Rx [Bactrim DS] Past Med/Surg History Social History Preferred Language: Vietnamese Communication Ability: Effective Visual Impairment: No Limitations Hearing Ability: Normal Beliefs That Will Affect Care: None marital status: seperated Current Living Situation: Family current occupational status: employed 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 Feels Safe at Home: Yes Smoking Status: Never smoker Second Hand Exposure: No ; Hx Alcohol Use: Yes (social rare) Hx Substance Use: No Review of Systems Review of Systems: The patient denies chest pain, palpitations, shortness of breath, dyspnea on exertion, cough, lower extremity swelling, sore throat, fevers, chills, sweats, diarrhea , constipation, abdominal pain, pelvic pain, blood in urine or stool, dysuria, urinary frequency or urgency, lightheadedness, dizziness, headache, memory loss, loss of consciousness, rash, abnormal bruising or bleeding, imbalance, focal or generalized weakness, numbness or tingling in arms or legs, generalized arthralgias or myalgias, neck pain, or night sweats. The review of systems is otherwise negative other than for that already noted above, and at least 10 systems have been reviewed. Physical Exam Physical Exam: The patient is awake, alert and oriented 3, well developed and well nourished, normocephalic and atraumatic, lying in bed and in no acute distress. HEENT--PERRL, EOMI, mucous membranes and oropharynx normal. Neck--supple. No JVD. No bruits. Thyroid normal, trachea midline, no adenopathy. Heart--normal S1 and S2. No murmurs, rubs or gallops. Lungs--clear bilaterally, no respiratory distress, no accessory muscle use. Abdomen--normal bowel sounds and soft. Bilateral groin and generalized pelvis discomfort. Extremities--no cyanosis or clubbing. No edema. Dermatologic--normal skin turgor, normal color, no abnormal lymph nodes, no rash. Neurologic--cranial nerves II through XII grossly intact. Rheumatologic--normal range of motion. Psychiatric--normal affect. Results & Data Vital Signs (Past 12 Hours) Vital Signs Temp Pulse Resp BP Pulse Ox 10/13/19 20:48 62 18 97 10/13/19 20:00 62 18 106/62 100 10/13/19 18:36 99 10/13/19 17:18 98.4 F 77 18 127/82 100 Laboratory Results Laboratory Results WBC 14.20 K/uL (4.8-10.8) H 10/13/19 17:42 RBC 4.31 M/uL (4.2-5.4) 10/13/19 17:42 Hgb 12.0 g/dL (12.0-16.0) 10/13/19 17:42 Hct 35.6 % (37-47) L 10/13/19 17:42 MCV 82.6 fL (80-100) 10/13/19 17:42 MCH 27.8 pg (25-34) 10/13/19 17:42 MCHC 33.7 g/dL (32-36) 10/13/19 17:42 RDW Std Deviation 42.0 fL (36.4-46.3) 10/13/19 17:42 RDW Coeff of Kb 13.8 % (11.5-14.5) 10/13/19 17:42 Plt Count 290 K/uL (130-400) 10/13/19 17:42 MPV 9.9 fL (7.4-10.4) 10/13/19 17:42 Immature Gran % (Auto) 0.2 % 10/13/19 17:42 Neut % (Auto) 77.7 % 10/13/19 17:42 Lymph % (Auto) 17.6 % 10/13/19 17:42 Parmer % (Auto) 4.2 % 10/13/19 17:42 Eos % (Auto) 0.1 % 10/13/19 17:42 Baso % (Auto) 0.2 % 10/13/19 17:42 Immature Gran # (Auto) 0.03 K/uL (0.00-0.02) H 10/13/19 17:42 Neut # (Auto) 11.04 K/uL (1.4-6.5) H 10/13/19 17:42 Lymph # (Auto) 2.50 K/uL (1.2-3.4) 10/13/19 17:42 Parmer # (Auto) 0.59 K/uL (0.11-0.59) 10/13/19 17:42 Eos # (Auto) 0.01 K/uL (0-0.5) 10/13/19 17:42 Baso # (Auto) 0.03 K/uL (0-0.2) 10/13/19 17:42 Sodium 138 mmol/L (136-145) 10/13/19 17:42 Potassium 3.3 mmol/L (3.5-5.1) L 10/13/19 17:42 Chloride 106 mmol/L (98-107) 10/13/19 17:42 Carbon Dioxide 24 mmol/L (21-32) 10/13/19 17:42 Anion Gap 8.0 (3-11) 10/13/19 17:42 BUN 12 mg/dl (7-18) 10/13/19 17:42 Creatinine 0.82 mg/dl (0.6-1.2) 10/13/19 17:42 Est Cr Clr Drug Dosing 81.8 ml/min 10/13/19 17:42 Est GFR ( Amer) 109.0 10/13/19 17:42 Est GFR (Non-Af Amer) 94.0 10/13/19 17:42 BUN/Creatinine Ratio 15.1 (10-20) 10/13/19 17:42 Glucose 88 mg/dl (70-99) 10/13/19 17:42 Calcium 8.6 mg/dl (8.5-10.1) 10/13/19 17:42 Total Bilirubin 0.6 mg/dl (0.2-1) 10/13/19 17:42 AST 14 U/L (15-37) L 10/13/19 17:42 ALT 13 U/L (12-78) 10/13/19 17:42 Alkaline Phosphatase 65 U/L (45-117) 10/13/19 17:42 Total Protein 7.8 gm/dl (6.4-8.2) 10/13/19 17:42 Albumin 4.0 gm/dl (3.4-5.0) 10/13/19 17:42 Globulin 3.8 gm/dl (2.5-4.0) 10/13/19 17:42 Albumin/Globulin Ratio 1.1 (0.9-2) 10/13/19 17:42 Lipase 102 U/L (73-393) 10/13/19 17:42 Urine Color Dark Yellow 10/13/19 17:42 Urine Appearance Cloudy (Clear) A 10/13/19 17:42 Urine pH 5.5 (4.5-7.5) 10/13/19 17:42 Ur Specific [place] 1.035 (1.000-1.030) H 10/13/19 17:42 Urine Protein Trace (Negative) H 10/13/19 17:42 Urine Glucose (UA) Negative (Negative) 10/13/19 17:42 Urine Ketones Negative (Negative) 10/13/19 17:42 Urine Blood 3+ (Negative) H 10/13/19 17:42 Urine Nitrite Positive (Negative) A 10/13/19 17:42 Urine Bilirubin Negative (Negative) 10/13/19 17:42 Urine Urobilinogen Negative (Negative) 10/13/19 17:42 Ur Leukocyte Esterase Negative (Negative) 10/13/19 17:42 Urine WBC (Auto) 1-5 /hpf (0-5) 10/13/19 17:42 Urine RBC (Auto) 10-30 /hpf (0-4) H 10/13/19 17:42 U Hyaline Cast (Auto) 10-30 /lpf (0-5) H 10/13/19 17:42 U Epithel Cells (Auto) >30 /lpf (0-5) H 10/13/19 17:42 Urine Bacteria (Auto) 4+ (Negative) H 10/13/19 17:42 Ur Renal Epithelial Cell Not Reportable 10/13/19 17:42 Amorphous Sediment Present (None Prsent) A 10/13/19 17:42 Urine Mucus Present (None Prsent) A 10/13/19 17:42 POC Ur Test NEG (NEG) 10/13/19 17:46 Diagnostic Findings [place], [place] [phone] CT Scan Report Patient: DEONNA WOLF Date: 10/13/19 MR#: [id number] [facility] Acct ID:[id number]: Date: 1985City Zip: [place] [address] Age: 34Location: ED Sex: F Room/Bed: Att Phy:Diagnosis: BACK PAIN, PAINFUL URINATION, ABD PAIN Armida Phy: Harriet Flood MDService Date: 10/13/19 Fam Phy:Interpreting Phy: Celso Price MD Admit Phy: Ordering Phy: Chaitanya Tirado MD cc: ~ CT OF THE ABDOMEN AND PELVIS WITHOUT CONTRAST CLINICAL HISTORY: Left flank pain. COMPARISON STUDY: CT of the abdomen and pelvis February 27, 2018 TECHNIQUE: Axial images of the abdomen and pelvis were obtained without IV contrast. Images were reviewed in the axial, sagittal, and coronal planes. Automated exposure control was utilized for the study. A dose lowering technique was utilized adhering to the principles of ALARA. FINDINGS: Lung bases are unremarkable. No renal, ureteral or bladder calculi are present. There is no hydronephrosis or hydroureter. Evaluation of the abdomen and pelvis is suboptimal as unenhanced exam. Mild prominence of the common bile duct is unchanged since prior CT and likely related to cholecystectomy. The spleen, adrenal glands, liver and pancreas are unremarkable. There is no peripancreatic infiltration. There is no evidence for acute appendicitis. Trace fluid within the pelvis is likely physiologic. The ovaries are not enlarged. No pneumatosis, free air or portal venous gas is present. Tampon is in place. There are no suspicious osseous lesions. IMPRESSION: 1. No urinary calculi or hydronephrosis. 2. No acute process within the abdomen or pelvis on unenhanced exam. ACT 112: Negative or not required by law. Electronically signed by: Celso Price M.D. 10/13/2019 6:41 PM Dictated: 10/13/191833 Transcribed: 10/13/191833 Code Status & VTE Plan Code Status Full code VTE Prophylaxis Plan VTE Prophylaxis will be ordered: Yes PG Care Time/CCT Total # of Minutes Spent Total Time Spent with Patient: Total time spent is greater than 50% in coordination of care (as documented) at patient's floor/unit and/or counseling patient: Coding Level of Care Code 44559 OBS Care - Level 3 Diagnoses Urinary tract infection N39.0 Neutrophilic leukocytosis D72.9 GERD without esophagitis K21.9 Irritable bowel syndrome K58.9 Depression F32.9 Bipolar I disorder, single manic episode F30.9
[2019-10-13] MEDS ORDERED: BACLOFEN 10 MG TAB PO PRN (23:21)
[2019-10-13] MEDS ORDERED: HYDROCODONE/ACETAMOPHEN 5/325MG TAB PO PRN (23:22)
[2019-10-13] MEDS ORDERED: POLYETHYLENE (MIRALAX) 17 GM PACK PO PRN (23:22)
[2019-10-13] MEDS ORDERED: ALUMINUM/MAGNESIUM SUSP 30 ML UDC PO PRN (23:22)
[2019-10-13] MEDS ORDERED: KETOROLAC 30 MG/ML VIAL IV PRN (23:22)
[2019-10-13] MEDS ORDERED: MAGNESIUM HYDROXIDE SUSP 30 ML UDC PO PRN (23:22)
[2019-10-13] MEDS: ACETAMINOPHEN 500 MG TAB PO PRN (23:49)
[2019-10-13] MEDS: FAMOTIDINE 20 MG in SYRINGE 3 ML IV SCH (23:53)
[2019-10-13] MEDS: CEFEPIME 2,000 MG in SYRINGE 7.5 ML IV SCH (23:53)
--- NOTE | 2019-10-14 | Emergency Department Note ---
Entered by Floridalma Mcallister acting as a scribe for ED Provider Note CHIEF COMPLAINT: Flank pain HISTORY OF PRESENT ILLNESS: The patient is a 34 year old female with past medical history of anemia, anxiety, arthritis, GERD without esophagitis, IBS, who presents to the Emergency Room with complaints of constant worsening left sided flank pain that started last night. The patient reports she felt a sharp pain in her flank last night which is similar to when she had kidney infection. She notes she woke up this morning and had bad period cramps. The patient states her symptoms worsened after getting her period. She reports she had spikes of pain in her back that radiated to her abdomen and groin. The patient states she was in so much pain she thought she was in labor and according to her boyfriend, she "passed out". The patient notes she has nausea and vomiting and notes her vomit was orange. She states her urine seems to be darker. Pt denies LOC, headache, fevers, chills, diaphoresis, visual changes, neck pain, chest pain, breathing difficulties, melena, hematochezia, numbness, weakness, lymphadenopathy, rash, or other complaints. REVIEW OF SYSTEMS: See HPI for pertinent positives and negatives. A total of ten systems were reviewed and were otherwise negative. PMHx/PSHx: Anemia Anxiety Arthritis GERD without esophagitis IBS SOCIAL HISTORY: Patient lives at home. PHYSICAL EXAM: GENERAL: Awake, alert, very uncomfortable-appearing, in no distress HENT: Normocephalic, atraumatic. Oropharynx unremarkable. EYES: PERRL. Normal conjunctiva. Sclera non-icteric. NECK: Inspection normal. Non-tender. Supple. No nuchal rigidity. FROM. No masses. RESPIRATORY: Clear to auscultation. No wheezes. No rales. Normal respiratory effort. CARDIAC: Normal rate. Normal rhythm. No murmurs. No rubs. Extremities warm and well perfused. Pulses equal. No JVD. GI: Soft, non-distended. Minimal left lower quadrant tenderness to palpation. No rebound or guarding. No masses. RECTAL: Deferred. MUSCULOSKELETAL: Atraumatic. Chest examination reveals no tenderness. The back is symmetrical on inspection without obvious abnormality. There is left CVA tenderness to palpation. No joint edema. LOWER EXTREMITIES: Calves are equal size bilaterally and non-tender. No edema. No discoloration. NEURO: Normal sensorium. No sensory or motor deficits noted. SKIN: No rash or jaundice noted. EMERGENCY DEPARTMENT COURSE: 1802: The patient was evaluated in room C4, and a complete history and physical examination were performed. 1839: I checked on the patient. 1954: I checked on the patient. 2056: I checked on the patient. The patient had vomiting and had a dose of Phenergan. 2115: I discussed the patient's case with Dr. Tse, [facility] Hospitalist. The patient will be evaluated for further management. MEDICAL DECISION MAKING: Triage Nursing notes reviewed and agree them. The patient's history was concerning for flank and abdominal pain. Differential diagnosis: Etiologies such as renal colic, pyelonephritis, appendicitis, diverticulitis, mesenteric ischemia, aortic pathology, infections, inflammatory bowel disease, PUD, biliary pathology, , ovarian pathology,, as well as others were entertained. Physical examination findings: As above. ER treatment provided: IV Zofran times multiple doses IV Dilaudid IV Rocephin IV Toradol Phenergan On reassessment the patient felt continued nausea and pain. She had multiple episodes of vomiting. Diagnostic interpretation by me: The labs revealed a moderate leukocytosis on CBC. Chemistry panel was unremarkable. Urinalysis revealed findings concerning for urinary tract infection. Imaging studies: CT imaging negative for acute pathology. The patient was initially feeling better after the above treatment but then had continued pain and nausea. She had multiple episodes of vomiting. She was prepped for discharge however due to the significant episodes of nausea and vomiting further management in the hospital was deemed necessary. Consultation: A consultation was placed with the hospitalist. The case was discussed and diagnostics were reviewed. The patient was evaluated in the ER for further treatment. IMPRESSION: Pyelonephritis Left flank pain Intractable nausea and vomiting PLAN: Admit The scribe's documentation has been prepared under my direction and personally reviewed by me in its entirety. I confirm that the note above accurately reflects all work, treatment, procedures, and medical decision making performed by me. 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[employer] Feels Safe at Home: Yes Smoking Status: Never smoker Second Hand Exposure: No ; Hx Alcohol Use: Yes (social rare) Hx Substance Use: No Results & Data Vital Signs Vital Signs - 24 hr 10/13/19 17:18 10/13/19 18:36 10/13/19 20:00 Temperature 36.9 C Temperature Source Oral Pulse Rate 77 62 Pulse Rate from SpO2 Sensor 63 Pulse Rhythm Regular Respiratory Rate 18 18 Respiratory Effort / Characteristics Non-Labored Respiratory Depth Normal Respiratory Pattern Regular Blood Pressure 127/82 106/62 Blood Pressure Mean 97 69 Blood Pressure Position Sitting Pulse Oximetry 100 99 100 Oxygen Delivery Method Room Air Room Air Sepsis Recent Fever Within 48 Hours No Sepsis Action Taken by Nursing No Action Required 10/13/19 20:48 Temperature Temperature Source Pulse Rate 62 Pulse Rate from SpO2 Sensor Pulse Rhythm Respiratory Rate 18 Respiratory Effort / Characteristics Respiratory Depth Respiratory Pattern Blood Pressure Blood Pressure Mean Blood Pressure Position Pulse Oximetry 97 Oxygen Delivery Method Sepsis Recent Fever Within 48 Hours Sepsis Action Taken by [facility] Medications Current Medication List: was personally reviewed by me Laboratory Data Attestation: I reviewed the patient's lab results. Result diagrams: 10/13/19 17:42 10/13/19 17:42 Lab Results 10/13/19 10/13/19 10/13/19 Range/Units 17:42 17:42 17:42 WBC 14.20 H (4.8-10.8) K/uL RBC 4.31 (4.2-5.4) M/uL Hgb 12.0 (12.0-16.0) g/dL Hct 35.6 L (37-47) % MCV 82.6 (80-100) fL MCH 27.8 (25-34) pg MCHC 33.7 (32-36) g/dL RDW Std Deviation 42.0 (36.4-46.3) fL RDW Coeff of Kb 13.8 (11.5-14.5) % Plt Count 290 (130-400) K/uL MPV 9.9 (7.4-10.4) fL Immature Gran % (Auto) 0.2 % Neut % (Auto) 77.7 % Lymph % (Auto) 17.6 % [place] % (Auto) 4.2 % Eos % (Auto) 0.1 % Baso % (Auto) 0.2 % Immature Gran # (Auto) 0.03 H (0.00-0.02) K/uL Neut # (Auto) 11.04 H (1.4-6.5) K/uL Lymph # (Auto) 2.50 (1.2-3.4) K/uL [place] # (Auto) 0.59 (0.11-0.59) K/uL Eos # (Auto) 0.01 (0-0.5) K/uL Baso # (Auto) 0.03 (0-0.2) K/uL Sodium 138 (136-145) mmol/L Potassium 3.3 L (3.5-5.1) mmol/L Chloride 106 (98-107) mmol/L Carbon Dioxide 24 (21-32) mmol/L Anion Gap 8.0 (3-11) BUN 12 (7-18) mg/dl Creatinine 0.82 (0.6-1.2) mg/dl Est Cr Clr Drug Dosing 81.8 ml/min Est GFR ( Amer) 109.0 Est GFR (Non-Af Amer) 94.0 BUN/Creatinine Ratio 15.1 (10-20) Glucose 88 (70-99) mg/dl Calcium 8.6 (8.5-10.1) mg/dl Total Bilirubin 0.6 (0.2-1) mg/dl AST 14 L (15-37) U/L ALT 13 (12-78) U/L Alkaline Phosphatase 65 (45-117) U/L Total Protein 7.8 (6.4-8.2) gm/dl Albumin 4.0 (3.4-5.0) gm/dl Globulin 3.8 (2.5-4.0) gm/dl Albumin/Globulin Ratio 1.1 (0.9-2) Lipase 102 (73-393) U/L Urine Color Dark Yellow Urine Appearance Cloudy A (Clear) Urine pH 5.5 (4.5-7.5) Ur Specific [place] 1.035 H (1.000-1.030) Urine Protein Trace H (Negative) Urine Glucose (UA) Negative (Negative) Urine Ketones Negative (Negative) Urine Blood 3+ H (Negative) Urine Nitrite Positive A (Negative) Urine Bilirubin Negative (Negative) Urine Urobilinogen Negative (Negative) Ur Leukocyte Esterase Negative (Negative) Urine WBC (Auto) 1-5 (0-5) /hpf Urine RBC (Auto) 10-30 H (0-4) /hpf U Hyaline Cast (Auto) 10-30 H (0-5) /lpf U Epithel Cells (Auto) >30 H (0-5) /lpf Urine Bacteria (Auto) 4+ H (Negative) Ur Renal Epithelial Cell Not Reportable Amorphous Sediment Present A (None Prsent) Urine Mucus Present A (None Prsent) POC Ur Test (NEG) 10/13/19 Range/Units 17:46 WBC (4.8-10.8) K/uL RBC (4.2-5.4) M/uL Hgb (12.0-16.0) g/dL Hct (37-47) % MCV (80-100) fL MCH (25-34) pg MCHC (32-36) g/dL RDW Std Deviation (36.4-46.3) fL RDW Coeff of Kb (11.5-14.5) % Plt Count (130-400) K/uL MPV (7.4-10.4) fL Immature Gran % (Auto) % Neut % (Auto) % Lymph % (Auto) % [place] % (Auto) % Eos % (Auto) % Baso % (Auto) % Immature Gran # (Auto) (0.00-0.02) K/uL Neut # (Auto) (1.4-6.5) K/uL Lymph # (Auto) (1.2-3.4) K/uL [place] # (Auto) (0.11-0.59) K/uL Eos # (Auto) (0-0.5) K/uL Baso # (Auto) (0-0.2) K/uL Sodium (136-145) mmol/L Potassium (3.5-5.1) mmol/L Chloride (98-107) mmol/L Carbon Dioxide (21-32) mmol/L Anion Gap (3-11) BUN (7-18) mg/dl Creatinine (0.6-1.2) mg/dl Est Cr Clr Drug Dosing ml/min Est GFR ( Amer) Est GFR (Non-Af Amer) BUN/Creatinine Ratio (10-20) Glucose (70-99) mg/dl Calcium (8.5-10.1) mg/dl Total Bilirubin (0.2-1) mg/dl AST (15-37) U/L ALT (12-78) U/L Alkaline Phosphatase (45-117) U/L Total Protein (6.4-8.2) gm/dl Albumin (3.4-5.0) gm/dl Globulin (2.5-4.0) gm/dl Albumin/Globulin Ratio (0.9-2) Lipase (73-393) U/L Urine Color Urine Appearance (Clear) Urine pH (4.5-7.5) Ur Specific [place] (1.000-1.030) Urine Protein (Negative) Urine Glucose (UA) (Negative) Urine Ketones (Negative) Urine Blood (Negative) Urine Nitrite (Negative) Urine Bilirubin (Negative) Urine Urobilinogen (Negative) Ur Leukocyte Esterase (Negative) Urine WBC (Auto) (0-5) /hpf Urine RBC (Auto) (0-4) /hpf U Hyaline Cast (Auto) (0-5) /lpf U Epithel Cells (Auto) (0-5) /lpf Urine Bacteria (Auto) (Negative) Ur Renal Epithelial Cell Amorphous Sediment (None Prsent) Urine Mucus (None Prsent) POC Ur Test NEG (NEG) Administered Medications Discontinued Medications Calcium Carbonate (Tums) 1,000 mg PO NOW STA Stop: 10/13/19 20:03 Last Admin: 10/13/19 20:14 Dose: 1,000 mg Documented by: [id number] Hydromorphone HCl (Dilaudid) 0.5 mg IV Q15M PRN PRN Reason: Pain Stop: 10/27/19 18:03 Last Admin: 10/13/19 18:18 Dose: 0.5 mg Documented by: [id number] Sodium Chloride (Nss 1000ml) 1,000 mls @ 999 mls/hr IV .Q1H1M ONE Stop: 10/13/19 19:04 Last Infusion: 10/13/19 21:13 Dose: 0 mls/hr Documented by: [id number] Admin: 10/13/19 18:18 Dose: 999 mls/hr Documented by: [id number] Ceftriaxone Sodium (Rocephin) 1,000 mg in 50 mls @ 100 mls/hr IV NOW STA Stop: 10/13/19 19:28 Last Infusion: 10/13/19 21:13 Dose: 0 mls/hr Documented by: [id number] Admin: 10/13/19 19:08 Dose: 100 mls/hr Documented by: [id number] Ketorolac Tromethamine (Toradol) 10 mg IV NOW ONE Stop: 10/13/19 18:05 Last Admin: 10/13/19 18:18 Dose: 10 mg Documented by: [id number] Ondansetron HCl (Zofran) 4 mg IV NOW STA Stop: 10/13/19 18:05 Last Admin: 10/13/19 18:18 Dose: 4 mg Documented by: [id number] Ondansetron HCl (Zofran) 4 mg IV NOW STA Stop: 10/13/19 19:58 Last Admin: 10/13/19 20:04 Dose: 4 mg Documented by: [id number] Oxycodone HCl (Roxicodone Immediate Rel 5mg Home Pack) 1 homepack PO UD ONE Stop: 10/13/19 19:58 Last Admin: 10/13/19 21:33 Dose: Not Given Documented by: [id number] Promethazine HCl (Phenergan 25mg Homepack) 1 homepack PO UD ONE Stop: 10/13/19 19:58 Last Admin: 10/13/19 21:33 Dose: Not Given Documented by: [id number] Trimethoprim/Sulfamethoxazole (Sulfameth/Trimeth Ds 800/160mg Home Pack) 1 jemal epack PO UD ONE Stop: 10/13/19 19:58 Last Admin: 10/13/19 21:33 Dose: Not Given Documented by: [id number] Imaging Data Radiologist's Impression: Radiology results as stated below per my review and the radiologist's interpretation: CT OF THE ABDOMEN AND PELVIS WITHOUT CONTRAST CLINICAL HISTORY: Left flank pain. COMPARISON STUDY: CT of the abdomen and pelvis February 27, 2018 TECHNIQUE: Axial images of the abdomen and pelvis were obtained without IV contrast. Images were reviewed in the axial, sagittal, and coronal planes. Automated exposure control was utilized for the study. A dose lowering technique was utilized adhering to the principles of ALARA. FINDINGS: Lung bases are unremarkable. No renal, ureteral or bladder calculi are present. There is no hydronephrosis or hydroureter. Evaluation of the abdomen and pelvis is suboptimal as unenhanced exam. Mild prominence of the common bile duct is unchanged since prior CT and likely related to cholecystectomy. The spleen, adrenal glands, liver and pancreas are unremarkable. There is no peripancreatic infiltration. There is no evidence for acute appendicitis. Trace fluid within the pelvis is likely physiologic. The ovaries are not enlarged. No pneumatosis, free air or portal venous gas is present. Tampon is in place. There are no suspicious osseous lesions. IMPRESSION: 1. No urinary calculi or hydronephrosis. 2. No acute process within the abdomen or pelvis on unenhanced exam. ACT 112: Negative or not required by law. Electronically signed by: Celso Price M.D. 10/13/2019 6:41 PM Blood Pressure Blood Pressure Findings: Normal blood pressure Blood Pressure Disposition: did not require urgent referral Discharge Plan Visit Data *Final* Discharge Date/Time: 10/13/19 22:28 Chief Complaint: Urinary Symptoms Stated Complaint: BACK PAIN, PAINFUL URINATION, ABD PAIN ED Provider: Chaitanya Tirado Discharge Problem: Pyelonephritis, Left flank pain Patient Disposition: Admitted As Inpatient Discharge Instructions Interventions: ED Discharge Assessment Last Done: 10/13/19 22:28 The scribe's documentation has been prepared under my direction and personally reviewed by me in its entirety. I confirm that the note above accurately reflects all work, treatment, procedures, and medical decision making performed by me.
[2019-10-14] MEDS: NSS + 20MEQ KCL 20 MEQ/1,000 ML BAG IV SCH ×3 (00:04→20:08)
[2019-10-14] MEDS ORDERED: PROCHLORPERAZINE 5 MG in SYRINGE 4 ML IV PRN (00:31)
[2019-10-14] MEDS: ONDANSETRON INJ 2 MG/ML 2 ML VIAL IV PRN ×2 (01:35→20:09)
[2019-10-14] MEDS: CEFEPIME 2,000 MG in SYRINGE 7.5 ML IV SCH ×2 (07:49→15:21)
[2019-10-14] MEDS: FAMOTIDINE 20 MG in SYRINGE 3 ML IV SCH ×2 (07:49→20:08)
[2019-10-14 10:27] LABS: Basophils # (auto) 0.03 K/uL (0-0.2); Basophils % (auto) 0.5 %; Eosinophils # (auto) 0.05 K/uL (0-0.5); Eosinophils % (auto) 0.9 %; Hematocrit (blood only) 34.1 % (37-47); Immature Granulocytes # (auto) 0.01 K/uL (0.00-0.02); Immature Granulocytes % (auto) 0.2 %; Lymphocytes # (auto) 2.34 K/uL (1.2-3.4); Lymphocytes % (auto) 40.4 %; Mean Corpuscular Hemoglobin 27.6 pg (25-34); Mean Corpuscular Hgb Conc 32.3 g/dL (32-36); Mean Corpuscular Volume 85.7 fL (80-100); Mean Platelet Volume 10.1 fL (7.4-10.4); Monocytes # (auto) 0.35 K/uL (0.11-0.59); Neutrophils # (auto) 3.01 K/uL (1.4-6.5); Platelet Count 227 K/uL (130-400); Red Blood Count 3.98 M/uL (4.2-5.4); White Blood Count 5.79 K/uL (4.8-10.8)
[2019-10-14 10:52] LABS: BUN Creatinine Ratio 12.5 (10-20); Calcium 8.1 mg/dl (8.5-10.1); Creatinine Clr Calc Pharmacy 74.9 ml/min; Est GFR (African American) 97.4; Potassium 3.6 mmol/L (3.5-5.1)
[2019-10-14] MEDS ORDERED: CALCIUM CARBONATE 500 MG CHEWABLE TAB PO PRN (12:24)
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
[2019-10-14] MEDS: ACETAMINOPHEN 500 MG TAB PO PRN (20:16)
[2019-10-15] MEDS: CEFEPIME 2,000 MG in SYRINGE 7.5 ML IV SCH ×2 (00:07→09:53)
[2019-10-15] MEDS: NSS + 20MEQ KCL 20 MEQ/1,000 ML BAG IV SCH (05:55)
[2019-10-15 06:03] LABS: Hemoglobin 10.1 g/dL (12.0-16.0); Mean Corpuscular Hemoglobin 27.8 pg (25-34); Mean Corpuscular Hgb Conc 32.6 g/dL (32-36); Mean Corpuscular Volume 85.4 fL (80-100); Mean Platelet Volume 10.2 fL (7.4-10.4); Platelet Count 204 K/uL (130-400); RDW Coefficient of Variation 14.2 % (11.5-14.5); RDW Standard Deviation 44.7 fL (36.4-46.3); Red Blood Count 3.63 M/uL (4.2-5.4); White Blood Count 5.67 K/uL (4.8-10.8)
[2019-10-15 06:37] LABS: BUN Creatinine Ratio 15.9 (10-20); Calcium 7.9 mg/dl (8.5-10.1); Creatinine Clr Calc Pharmacy 89.8 ml/min; Est GFR (African American) 121.4; Est GFR (Non-African American) 104.7
[2019-10-15] MEDS: FAMOTIDINE 20 MG in SYRINGE 3 ML IV SCH (09:53)
[2019-10-15] MEDS ORDERED: ALUMINUM/MAGNESIUM SUSP 18 ML, LIDOCAINE HCL VISCOUS 2% 6 ML, BARCODE IDENTIFIER 1 EA PO ONE (10:45)
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
[2019-10-15] MEDS ORDERED: NITROFURANTOIN MONOHYDRATE 100 MG CAP PO SCH (18:00)
== END 2019-10-15 14:07 | disposition home or self-care (01) ==
LOC: 4W 17:15 → ED 17:15 → SUATTDRO 21:41 → 4W 22:28